=== PATIENT | male | born 1960 | race Caucasian/White ===

== ENCOUNTER 2022-01-18 16:33 | Emergency (ER) | payer OTHER, SELFPAY ==
[2022-01-18] VITALS (14 sets, daily range): BP systolic 152–194; BP diastolic 81–104; PULSE 101–125; RESP 16–30; TEMP 38.7–39.3; O2SAT 88–99
--- NOTE | 2022-01-18 16:35 | DI.RAD.S_ITS ---
PROCEDURE: XR CHEST 1V INDICATIONS: suspected sepsis TECHNIQUE: One view of the chest was acquired. COMPARISON: None. FINDINGS: Surgical changes and devices: None. Lungs and pleura: Lungs are clear. No pleural effusions or pneumothorax. Mediastinum: Mediastinal contours appear normal. Heart size is normal. Bones and chest wall: No suspicious bony lesions. Overlying soft tissues appear unremarkable. IMPRESSION: No acute cardiopulmonary disease process. Dictated by: Erika Snow MD, PhD on 01/18/2022 at 17:32 Approved by: Erika Snow MD, PhD on 01/18/2022 at 17:32
[2022-01-18] MEDS: SODIUM CHLORIDE 0.9% 1,000 ML 1000 ML IV (17:02)
[2022-01-18 17:07] LABS: Add Manual Diff / Slide Review NO; Basophils Absolute Auto 0 /uL (0-100); Basophils Percent Auto 0.4 % (0-2); Eosinophils Absolute Auto 0 /uL (0-450); Eosinophils Percent Auto 0.4 % (2-4); Hematocrit 39.4 % (41-53); Hemoglobin 13.8 g/dL (13.5-17.5); Lymphocytes Absolute Auto 1000 /uL (1100-4500); Lymphocytes Percent Auto 11.3 % (25-40); Mean Corpuscular HGB Conc 34.9 % (30-36); Mean Corpuscular Hemoglobin 31.2 PG (26-34); Mean Corpuscular Volume 89.3 fL (80-100); Monocytes Absolute Auto 700 /uL (0-900); Monocytes Percent Auto 8.5 % (3-14); Neutrophils Absolute Auto 6800 /uL (1500-7000); Neutrophils Percent Auto 79.4 % (50-75); Platelet Count 257 X10^3/uL (150-400); Red Blood Cell Count 4.42 X10^6/uL (4.5-5.9); White Blood Cell Count 8.5 X10^3/uL (4.5-11.0)
--- NOTE | 2022-01-18 17:07 | ED.SEPSIS ---
HPI - Sepsis General Chief Complaint: Fever Mode of arrival: Ambulatory Source: patient Evaluation Sepsis Screen: Possible Sepsis Risk Sepsis Infection Criteria Present: Suspected New Infection Narrative: Patient is a 61-year-old male with history of prostate cancer is currently on Lupron therapy has a last dose was about 2 weeks ago presenting today from the walk-in clinic concerned for sepsis and cellulitis of his forehead. Patient states that last night he scratched his forehead this morning he woke up he has had increasing redness swelling pain and fever. He is currently tachycardic with a fever of 102. He has no difficulty breathing no chest pain cough or shortness of breath. He says he has actually had this once before and cleared up with antibiotics. Patient also was positive for COVID last week he took antiviral medication he is feeling better from that. He is vaccinated COVID x3. Review of Systems Review of Systems Narrative: GENERAL: + fever, weakness HEENT: Denies sinus pain, ear pain, sore throat, difficulty swallowing, neck pain RESPIRATORY: Denies dyspnea, cough, wheezing, hemoptysis, sputum. CARDIOVASCULAR: Denies chest pain, palpitations, orthopnea, edema GASTROINTESTINAL: Denies nausea, vomiting, abdominal pain, diarrhea, constipation, melena. : Denies dysuria, frequency, incontinence, hematuria, urinary retention, flank pain. MUSCULOSKELETAL: Denies weakness, joint pain, or bony pain SKIN:+ rash NEUROLOGIC: Denies weakness, dizziness, headache, numbness, change in speech, confusion PSYCHIATRIC: No concerning psychosocial issues. 12 point review of systems is negative except for those stated above and HPI Patient History Medical History Prostate cancer Social History Smoking Status: Never smoker Smoking Status: Never smoker Exam Initial Vital Signs Initial Vital Signs: Vital Signs Temperature 102.7 F H 01/18/22 16:41 Pulse Rate 114 H 01/18/22 16:41 Respiratory Rate 22 01/18/22 16:41 Blood Pressure 163/100 H 01/18/22 16:41 Pulse Oximetry 99 01/18/22 16:41 GENERAL: Alert 61-year-old male appears in not feel well HEENT: Head atraumatic,EOMI, pupils reactive, face symmetric, moist mucous membranes CARDIOVASCULAR: Regular rate and rhythm without murmurs, rubs or gallops. RESPIRATORY: Breath sounds equal bilaterally, no wheezes rales or rhonchi. ABDOMEN: Soft, nontender. Normoactive bowel sounds all 4 quadrants. No guarding or rebound. EXTREMITIES: Normal range of motion, no clubbing or edema. Neurovascularly intact NEUROLOGICAL: Alert and oriented x4. SKIN: Forehead erythematous, no obvious sign of scratching or abrasion,fluctuation no induration minimal swelling and redness of cheeks and face. Course Orders Ordered: ED Orders 01/18/22 16:35 XR chest 1V Stat EKG-12 Lead Stat 01/18/22 16:40 Complete Blood Count AUTO DIFF Stat Comprehensive Metabolic Panel Stat Lactate (Lactic Acid) Stat Lipase Stat Procalcitonin Stat 01/18/22 17:15 Blood Culture Stat Discontinued Medications Sodium Chloride (Normal Saline 0.9%) 1,000 mls @ 1,000 mls/hr IV BOLUS ONE Stop: 01/18/22 17:34 Last Admin: 01/18/22 17:02 Dose: 1,000 mls/hr Documented by: CLAUDETTE Ceftriaxone Sodium 1,000 mg/ (Sodium Chloride) 100 mls @ 200 mls/hr IV NOW ONE Stop: 01/18/22 17:06 Last Infusion: 01/18/22 17:30 Dose: 0 mls/hr Documented by: Admin: 01/18/22 17:19 Dose: 200 mls/hr Documented by: CLAUDETTE Vancomycin HCl/Dextrose (Vancomycin) 1,500 mg in 300 mls @ 200 mls/hr IV NOW ONE Stop: 01/18/22 18:34 Last Admin: 01/18/22 17:30 Dose: 200 mls/hr Documented by: CLAUDETTE Ketorolac Tromethamine (Ketorolac 30 Mg/Ml Vial) 15 mg IV NOW ONE Stop: 01/18/22 17:06 Last Admin: 01/18/22 17:20 Dose: 15 mg Documented by: CLAUDETTE Vital Signs Vital signs: Vital Signs - 8 hr 01/18/22 16:41 Temperature 102.7 F H Pulse Rate 114 H Respiratory Rate 22 Blood Pressure 163/100 H Pulse Oximetry 99 Sepsis Guideline Criteria Level 1 - Infection Sepsis Infection Criteria Present: Suspected New Infection Treatment Initiated Antibiotics:: IV antimicrobials will be initiated as soon as possible after recognition of sepsis state and within one hour for both sepsis and septic shock. MDM - Sepsis Lab Data Result diagrams: 01/18/22 16:40 01/18/22 16:40 Labs: Lab Results 01/18/22 01/18/22 01/18/22 Range/Units 16:40 16:40 16:40 WBC 8.5 (4.5-11.0) X10^3/uL RBC 4.42 L (4.5-5.9) X10^6/uL Hgb 13.8 (13.5-17.5) g/dL Hct 39.4 L (41-53) % MCV 89.3 (80-100) fL MCH 31.2 (26-34) PG MCHC 34.9 (30-36) % RDW 13.0 (11.6-14.8) % Plt Count 257 (150-400) X10^3/uL Neut % (Auto) 79.4 H (50-75) % Lymph % (Auto) 11.3 L (25-40) % Custer % (Auto) 8.5 (3-14) % Eos % (Auto) 0.4 L (2-4) % Baso % (Auto) 0.4 (0-2) % Neut # (Auto) 6800 (4411-6550) /uL Lymph # (Auto) 1000 L (7232-0143) /uL Custer # (Auto) 700 (0-900) /uL Eos # (Auto) 0 (0-450) /uL Baso # (Auto) 0 (0-100) /uL Sodium 138 (137-145) mmol/L Potassium 3.8 (3.4-5.1) mmol/L Chloride 100 (98-107) mmol/L Carbon Dioxide 27 (22-32) mmol/L BUN 14 (9-20) mg/dL Creatinine 0.83 (0.66-1.25) mg/dL Estimated GFR > 60 (>60) mL/min BUN/Creatinine Ratio 16.9 (6-22) Glucose 117 H (80-110) mg/dL Lactate 1.2 (0.7-2.1) mmol/L Calcium 9.3 (8.4-10.2) mg/dL Total Bilirubin 1.3 (0.2-1.3) mg/dL AST 22 (17-59) IU/L ALT 17 (<50) IU/L Alkaline Phosphatase 134 H (38-126) U/L Total Protein 8.6 H (6.3-8.2) g/dL Albumin 4.5 (3.5-5.0) g/dL Globulin 4.1 (1.7-4.1) g/dL Albumin/Globulin Ratio 1.1 (1.0-2.8) Lipase 181 (23-300) U/L Procalcitonin 0.08 (<0.5) ng/mL Imaging Data Chest x-ray: Radiologist's Impression: Signed Patient: Miguel Novoa MR#: [id number] : 1960 Acct:[id number] Age/Sex: 61 / M Date of Service: 01/18/22 Loc: ED Accession Number: [id number] ?? Procedure: XR chest 1V Ordering Provider: Ade Moses D.O. PROCEDURE:? XR CHEST 1V ? INDICATIONS:? suspected sepsis ? TECHNIQUE:? One view of the chest was acquired.? ? COMPARISON:? None. ? FINDINGS:? ? Surgical changes and devices:? None.? ? Lungs and pleura:? Lungs are clear.? No pleural effusions or pneumothorax.? ? Mediastinum:? Mediastinal contours appear normal.? Heart size is normal.? ? Bones and chest wall:? No suspicious bony lesions.? Overlying soft tissues appear unremarkable.? ? IMPRESSION:? No acute cardiopulmonary disease process. ? ? Dictated by: Erika Snow MD, PhD on 01/18/2022 at 17:32 ? ECG Data Interpretation: Normal sinus rhythm rate 109 OR interval 138 QRS [address] changes no T-wave inversion MDM Narrative Medical decision making narrative: Patient initially does meet SIRS criteria tachycardic febrile with obvious cellulitis of his forehead. However blood work is overall reassuring. At this time he is given a dose of Rocephin and vancomycin in the ED. However I think reasonable to send him home on oral antibiotics and return if needed. Blood cultures are pending. Discharge Plan Departure Patient Disposition: Home Clinical Impression: Cellulitis Qualifiers: Site of cellulitis: face Qualified Code(s): L03.211 - Cellulitis of face Instructions: Cellulitis Activity Restrictions/Additional Instructions: *You have been diagnosed with cellulitis of for head *What to do: Monitor closely. You should start to feel better. *Continue to take medications as directed Doxycycline 100mg twice a day for 10 days *Follow up with your primary care provider in 2-3 days or call [phone] *Return to ER if you should have increase redness, swelling in face, difficulty breathing [or] any new, worsening or concerning symptoms Prescriptions: New doxycycline hyclate 100 mg capsule 100 mg PO BID Qty: 20 0RF Referrals: Miscellaneous,Doctor, [Primary Care Provider] -
[2022-01-18 17:18] LABS: Lactate (Lactic Acid) 1.2 mmol/L (0.7-2.1)
[2022-01-18 17:19] LABS: Alanine Aminotransferase 17 IU/L (<50); Albumin 4.5 g/dL (3.5-5.0); Albumin Globulin Ratio 1.1 (1.0-2.8); Alkaline Phosphatase 134 U/L (38-126); Aspartate Aminotransferase 22 IU/L (17-59); BUN Creatinine Ratio 16.9 (6-22); Bilirubin Total 1.3 mg/dL (0.2-1.3); Blood Urea Nitrogen 14 mg/dL (9-20); Calcium 9.3 mg/dL (8.4-10.2); Carbon Dioxide 27 mmol/L (22-32); Chloride 100 mmol/L (98-107); Estimated Glomerular Filt Rate > 60 mL/min (>60); Globulin 4.1 g/dL (1.7-4.1); Glucose 117 mg/dL (80-110); HEMOLYSIS < 15 (0-50); Lipase 181 U/L (23-300); Potassium 3.8 mmol/L (3.4-5.1); Sodium 138 mmol/L (137-145); Total Protein 8.6 g/dL (6.3-8.2)
[2022-01-18] MEDS: cefTRIAXone 1,000 MG in SODIUM CHLORIDE 0.9% 100 ML 200 MG IV (17:19)
[2022-01-18] MEDS: KETOROLAC 30 MG/ML VIAL 15 MG IV (17:20)
[2022-01-18] MEDS: VANCOMYCIN 1,500 MG/300 ML PIGGYBACK 200 MG IV (17:30)
[2022-01-18 17:35] LABS: Procalcitonin 0.08 ng/mL (<0.5)
[2022-01-18] MEDS: ACETAMINOPHEN 325 MG TABLET 975 MG PO (19:41)
== END 2022-01-18 20:22 | disposition home or self-care (01) ==
PROVIDERS: Emergency Provider Emergency Medicine
DX: L03.211 Cellulitis of face (principal); R00.0 Tachycardia, unspecified
CPT/HCPCS: 36415; 71045; 80053; 83605; 83690; 84145; 85025; 87040; 93005; 93010; 96365; 96366; 96375; 99284; J0696; J1885

== ENCOUNTER → 2022-03-11 12:46 | Outpatient (CLI) | payer OTHER, SELFPAY ==
--- NOTE | 2022-03-11 12:51 | DI.MRI.S_ITS ---
PROCEDURE: MR SHOULDER LT WO CON INDICATIONS: Pain in left shoulder TECHNIQUE: Noncontrast oblique coronal T2 fast spin echo with fat saturation, oblique sagittal T1 spin echo and T2 fast spin echo with fat saturation, axial T1 spin echo and T2 fast spin echo with fat saturation through the shoulder. COMPARISON: None. FINDINGS: Image quality: Excellent. Rotator cuff: Mild supraspinatus and infraspinatus tendinosis is seen. Teres minor tendon is intact. Moderate subscapularis tendinosis with focal low-grade intrasubstance tearing distally. Edema is seen within the medial aspect of the subscapularis muscle and also the supraspinatus muscle, consistent with low-grade muscle strains. No significant rotator cuff muscle atrophy. Bones and bursae: Traction cystic changes and edema are seen in the posterosuperior humeral head. Mild to moderate degenerative changes are seen in the acromioclavicular joint. Small amount of subacromial/subdeltoid bursal fluid. A small glenohumeral effusion is present. Capsule and soft tissues: There is nondisplaced tearing of the superior labrum extending to the posterior and inferior labrum. The proximal biceps long head tendon is intact. There is partial effacement of the fat in the rotator interval. The glenohumeral ligaments are grossly intact. IMPRESSION: 1. Low grade intrasubstance tearing of the subscapularis tendon at its superior insertion superimposed on moderate tendinosis. Mild supraspinatus and infraspinatus tendinosis. 2. Low-grade strains of the supraspinatus and subscapularis muscles. 3. Nondisplaced tearing of the superior, posterior, and inferior labrum. 4. Mild to moderate acromioclavicular osteoarthrosis. 5. Small subacromial/subdeltoid bursal effusion or bursitis. Dictated by: Augustine Wilson M.D. on 03/11/2022 at 14:43 Approved by: Augustine Wilson M.D. on 03/11/2022 at 14:51
== END ==
DX: M75.112 Incomplete rotator cuff tear or rupture of left shoulder, not specified as traumatic (principal); S43.492A Other sprain of left shoulder joint, initial encounter; M19.012 Primary osteoarthritis, left shoulder; M25.512 Pain in left shoulder; G89.29 Other chronic pain
CPT/HCPCS: 73221

== ENCOUNTER → 2022-10-31 14:34 | Outpatient (CLI) | payer OTHER, SELFPAY | PROVIDERS: Visit Provider Student in an Organized Health Care Education/Training Program | DX: R21 Rash and other nonspecific skin eruption (principal) | CPT/HCPCS: 87070; 87075; 87205 ==

== ENCOUNTER → 2022-12-07 10:31 | Outpatient (CLI) | payer OTHER, SELFPAY ==
--- NOTE | 2022-12-07 10:46 | DI.DEXA.S_ITS ---
Bone Density Report Name: SUNDEEP PIPER Age: 62 Sex: Male Ethnicity: White Date of : 1960 Indication: Referring Provider: PAVAN BROWN Study: Bone densitometry was performed. Exam Date: December 07, 2022 Accession number: [id number] Bone Density: Region BMD T-score Z-score Classification AP Spine(L1-L4) 0.773 -2.5 -2.2 Osteoporosis Femoral Neck (Left) 0.578 -2.4 -1.6 Osteopenia Total Hip (Left) 0.781 -1.3 -1.2 Osteopenia Femoral Neck (Right) 0.615 -2.1 -1.4 Osteopenia Total Hip (Right) 0.768 -1.4 -1.3 Osteopenia Total Hip Mean 0.775 -1.4 -1.3 Osteopenia World Health Organization criteria for BMD impression classify patients as: Normal (T-score at or above -1.0), Osteopenia (T-score between -1.0 and -2.5), or Osteoporosis (T-score at or below -2.5). 10-year Fracture Risk: FRAX not reported because: Some T-score for Spine Total or Hip Total or Femoral Neck at or below -2.5 Impression: The patient has osteoporosis, based on the Total Spine T-score. Discussion: HIGH RISK OF FRACTURE. BONE DENSITY IS UNDESIRABLY LOW AT ONE OR MORE SKELETAL SITES, CONSISTENT WITH OSTEOPOROSIS. ALSO, BONE DENSITY IS LOWER THAN EXPECTED FOR AGE, SEX AND RACE AT ONE OR MORE SKELETAL SITES; RECOMMEND A DILIGENT SEARCH FOR SECONDARY CAUSES OF BONE LOSS. This patient's lowest T-score meets the World Health Organization's (WHO) criteria for osteoporosis at one or more sites (T-score -2.5 or below). In untreated patients, the risk of osteoporotic fracture increases approximately two-fold for each 1.0 SD decrease in T-score. Low bone density is not the only risk factor for fracture; also consider factors such as patient's age, frailty or poor health, risk of falling, risk of injury, previous osteoporotic fracture, family history of osteoporosis, cigarette smoking, low body weight, etc. Not everyone with low bone mineral density has osteoporosis; osteomalacia and other metabolic bone disorders should also be considered. Patients who have osteoporosis should be evaluated for specific diseases and conditions (secondary causes) that may cause or contribute to bone loss. The National Osteoporosis Foundation (NOF) recommends pharmacologic intervention for men with BMD at this level (a T-score of -2.5 or below). Also, this patient's bone mineral density is below the range considered normal for healthy age-, sex and race-matched controls at least one site (Z-score -2.0 or below). This warrants careful evaluation for diseases and conditions that may contribute to accelerated bone loss. The patient should follow a healthful lifestyle (good nutrition with adequate calcium and vitamin D, and appropriate weight-bearing exercise). Follow-Up: Consider repeating this study in 2 years to reassess this patient's status, or sooner if there is some new clinical indication. Reported by: NICCI BORJAS M.D. on 12/07/2022 11:03:00 AM.
== END ==
PROVIDERS: PCP Family Medicine; Referring Provider Student in an Organized Health Care Education/Training Program; Visit Provider Student in an Organized Health Care Education/Training Program
DX: C79.82 Secondary malignant neoplasm of genital organs (principal); M81.0 Age-related osteoporosis without current pathological fracture; C80.1 Malignant (primary) neoplasm, unspecified; Z79.818 Long term (current) use of other agents affecting estrogen receptors and estrogen levels
CPT/HCPCS: 77080

== ENCOUNTER → 2022-12-28 13:10 | Outpatient (CLI) | payer OTHER, SELFPAY ==
--- NOTE | 2022-12-28 13:12 | DI.RAD.S_ITS ---
PROCEDURE: XR KNEE LT 3V INDICATIONS: Left medial knee pain/swelling x3 mo TECHNIQUE: 3 views of the knee were acquired. COMPARISON: None. FINDINGS: Bones: No fractures or dislocations. No suspicious bony lesions. Mild tricompartmental osteoarthritic degenerative changes. Soft tissues: Large suprapatellar joint effusion. No suspicious soft tissue calcifications. IMPRESSION: Large nonspecific joint effusion. No acute osseous lesion. If symptoms and/or clinical suspicion for pathology persists, further assessment with advanced imaging (e.g. CT, MRI or bone scan) should be considered. Dictated by: Erika Snow MD, PhD on 12/28/2022 at 13:29 Approved by: Erika Snow MD, PhD on 12/28/2022 at 13:29
== END ==
PROVIDERS: PCP Family Medicine; Referring Provider Family Medicine; Visit Provider Family Medicine
DX: M25.462 Effusion, left knee (principal); M25.562 Pain in left knee
CPT/HCPCS: 73562

== ENCOUNTER → 2023-05-13 09:51 | Outpatient (CLI) | payer OTHER, SELFPAY ==
--- NOTE | 2023-05-13 09:52 | DI.RAD.S_ITS ---
PROCEDURE: XR KNEE LT 4V INDICATIONS: chronic pain TECHNIQUE: For views of the knee were acquired. COMPARISON: [facility], CR, XR KNEE LT 3V, 12/28/2022, 13:13. FINDINGS: Bones: No fractures or dislocations. No suspicious bony lesions. Mild marginal spurs in the patellofemoral articulation. Minor medial compartment joint space loss. Soft tissues: Moderate-sized suprapatellar joint effusion, similar compared to the prior joint effusion. No suspicious soft tissue calcifications. IMPRESSION: 1. Stable appearing moderate-sized joint effusion. 2. Minor to mild degenerative changes, stable compared to prior. Dictated by: Viviana Yee M.D. on 05/13/2023 at 12:43 Approved by: Viviana Yee M.D. on 05/13/2023 at 12:45
--- NOTE | 2023-05-13 09:52 | DI.RAD.S_ITS ---
PROCEDURE: XR KNEE RT 4V INDICATIONS: chronic pain TECHNIQUE: Four views of the knee were acquired. COMPARISON: [facility], CR, XR KNEE LT 3V, 12/28/2022, 13:13. FINDINGS: Bones: No fractures or dislocations. No suspicious bony lesions. Mild medial compartment joint space loss. Mild patellofemoral compartment spurs, similar compared to the contralateral side. Soft tissues: No joint effusion. No suspicious soft tissue calcifications. IMPRESSION: 1. Mild tricompartment degenerative change. 2. No significant joint effusion as seen on the contralateral side. Dictated by: Viviana Yee M.D. on 05/13/2023 at 12:45 Approved by: Viviana Yee M.D. on 05/13/2023 at 12:46
== END ==
PROVIDERS: PCP Family Medicine; Referring Provider Family Medicine; Visit Provider Family Medicine
DX: M25.561 Pain in right knee (principal); M25.562 Pain in left knee; M25.462 Effusion, left knee
CPT/HCPCS: 73564

== ENCOUNTER → 2023-05-16 11:11 | Outpatient (CLI) | payer OTHER, SELFPAY ==
[2023-05-16 12:04] LABS: Hemoglobin A1C% w Est Avg Glu 5.4 % (4.0-6.0)
[2023-05-16 12:16] LABS: Alanine Aminotransferase 18 IU/L (<50); Albumin 4.2 g/dL (3.5-5.0); Albumin Globulin Ratio 1.3 (1.0-2.8); Alkaline Phosphatase 111 U/L (38-126); Aspartate Aminotransferase 22 IU/L (17-59); BUN Creatinine Ratio 18.5 (6-22); Blood Urea Nitrogen 15 mg/dL (9-20); Calcium 9.2 mg/dL (8.4-10.2); Carbon Dioxide 30 mmol/L (22-32); Chloride 101 mmol/L (98-107); Cholesterol 191 mg/dL (140-199); Estimated Glomerular Filt Rate > 60 mL/min (>60); Globulin 3.2 g/dL (1.7-4.1); Glucose 100 mg/dL (80-110); HDL Cholesterol 33 mg/dL (40-60); HEMOLYSIS < 15 (0-50); LDL Cholesterol Calculated 134 mg/dL (<100); Potassium 4.1 mmol/L (3.4-5.1); Sodium 138 mmol/L (137-145); Total Protein 7.4 g/dL (6.3-8.2); Triglycerides 120 mg/dL (35-150)
[2023-05-16 17:25] LABS: HIV 1 & 2 Ab/Ag 4th Gen Combo NEGATIVE (NEGATIVE); Hep C Virus Ab w/Reflex Quant NEGATIVE s/c (NEGATIVE)
== END ==
LOC: LAB 11:27 → RESP 11:29
PROVIDERS: PCP Family Medicine; Referring Provider Family Medicine; Visit Provider Family Medicine
DX: Z00.00 Encounter for general adult medical examination without abnormal findings (principal); R73.09 Other abnormal glucose; R00.2 Palpitations; C61 Malignant neoplasm of prostate
CPT/HCPCS: 36415; 80053; 80061; 83036; 86803; 87389; 93005; 93010

== ENCOUNTER → 2024-12-13 18:24 | Outpatient (CLI) | payer OTHER, SELFPAY ==
--- NOTE | 2024-12-13 19:51 | DI.MRI.S_ITS ---
PROCEDURE: MR KNEE LT WO CON INDICATIONS: knee pain, effusion TECHNIQUE: Noncontrast sagittal PD fast spin echo and T2 fast spin echo with fat saturation, sagittal 3-D FLASH with fat saturation; coronal T1 spin echo and PD fast spin echo with fat saturation, and axial PD fast spin echo with fat saturation through the knee. COMPARISON: None. FINDINGS: Image quality: Excellent. Menisci: Absence/degeneration of the mid body extending into the anterior horn of the medial meniscus with truncation of the apices of the anterior and posterior horns. Lateral meniscus is intact without abnormal signal to suggest tear. There is increased T2 weighted signal posteriorly suggests meniscocapsular separation posteriorly. Large left knee joint effusion. Cruciate ligaments: The anterior and posterior cruciate ligaments appear intact. Medial structures: Increased T2 weighted signal surrounding the medial collateral ligament suggests grade 1 injury likely chronic. The semimembranosus tendon insertion is intact. Visualized portions of the pes anserinus tendons appear normal. Lateral structures: The lateral collateral ligament, long and short heads of the biceps femoris tendon appear intact. The popliteus tendon appears normal. Iliotibial band appears normal. Anterior structures: The quadriceps and patellar tendons appear intact. Patellar alignment is normal. No femoral trochlear dysplasia or ventral trochlear prominence. Bones and cartilage: 3 mm focal cartilage defect in the lateral tibial plateau (coronal series 14, image 22). Moderate diffuse cartilaginous thinning in the medial compartment. Mild degenerative irregularity in the medial patellar facet cartilage with mild thinning. No bone marrow contusions or fractures. Joint space: There is large knee joint effusion. No popliteal cyst. IMPRESSION: Large effusion. Degeneration of the medial meniscus as discussed above. Dictated by: Ottoniel Sterling M.D. on 12/14/2024 at 8:30 Approved by: Ottoniel Sterling M.D. on 12/14/2024 at 9:15
== END ==
PROVIDERS: PCP Family Medicine; Referring Provider Family Medicine; Visit Provider Family Medicine
DX: M23.312 Other meniscus derangements, anterior horn of medial meniscus, left knee (principal); M25.562 Pain in left knee; M25.462 Effusion, left knee
CPT/HCPCS: 73721

== ENCOUNTER → 2025-01-04 16:07 | Outpatient (CLI) | payer OTHER, SELFPAY ==
[2025-01-04 18:03] LABS: Alanine Aminotransferase 16 IU/L (<50); Albumin 4.3 g/dL (3.5-5.0); Albumin Globulin Ratio 1.8 (1.0-2.8); Alkaline Phosphatase 113 U/L (38-126); Aspartate Aminotransferase 22 IU/L (17-59); BUN Creatinine Ratio 24.2 (6-22); Bilirubin Total 0.6 mg/dL (0.2-1.3); Blood Urea Nitrogen 24 mg/dL (9-20); Calcium 8.7 mg/dL (8.4-10.2); Carbon Dioxide 24 mmol/L (22-32); Chloride 107 mmol/L (98-107); Cholesterol 182 mg/dL (140-199); Estimated Glomerular Filt Rate > 60 mL/min (>60); Globulin 2.4 g/dL (1.7-4.1); Glucose 96 mg/dL (70-99); HDL Cholesterol 41 mg/dL (40-60); HEMOLYSIS < 15 (0-50); LDL Cholesterol Calculated 96 mg/dL (<100); Potassium 4.7 mmol/L (3.4-5.1); Sodium 140 mmol/L (137-145); Total Protein 6.7 g/dL (6.3-8.2); Triglycerides 226 mg/dL (35-150)
[2025-01-04 18:34] LABS: Prostate Specific Antigen Scrn < 0.064 ng/mL (0.1-4.0)
[2025-01-04 20:07] LABS: Urine N gonorrhoeae NOT DETECTED
[2025-01-04 20:11] LABS: Urine Chlamydia NOT DETECTED
[2025-01-05 04:10] LABS: HSV 1 IGG AB Non Reactive (Non Reactive); HSV 2 IGG AB Non Reactive (Non Reactive)
[2025-01-05 06:40] LABS: RPR Screen Non Reactive (Non Reactive)
[2025-01-05 15:19] LABS: Hepatitis B Surface Antigen NEGATIVE s/c (NEGATIVE)
[2025-01-05 15:38] LABS: HIV 1 & 2 Ab/Ag 4th Gen Combo NEGATIVE (NEGATIVE); Hep C Virus Ab w/Reflex Quant NEGATIVE s/c (NEGATIVE)
== END ==
PROVIDERS: PCP Family Medicine; Visit Provider Family Medicine
DX: E78.5 Hyperlipidemia, unspecified (principal); Z12.5 Encounter for screening for malignant neoplasm of prostate; Z00.00 Encounter for general adult medical examination without abnormal findings; Z11.3 Encounter for screening for infections with a predominantly sexual mode of transmission; N52.9 Male erectile dysfunction, unspecified; Z72.51 High risk heterosexual behavior
CPT/HCPCS: 36415; 80053; 80061; 86592; 86695; 86696; 86803; 87340; 87389; 87491; 87591; G0103

== ENCOUNTER → 2025-03-20 17:05 | Outpatient (CLI) | payer OTHER, SELFPAY ==
--- NOTE | 2025-03-20 17:05 | DI.MRI.S_ITS ---
PROCEDURE: MR SHOULDER RT WO CON INDICATIONS: persistent pain. ? rotator cuff TECHNIQUE: Noncontrast oblique coronal T2 fast spin echo with fat saturation, oblique sagittal T1 spin echo and T2 fast spin echo with fat saturation, axial T1 spin echo and T2 fast spin echo with fat saturation through the shoulder. COMPARISON: [facility], MR, MR SHOULDER LT WO CON, 03/11/2022, 13:04. FINDINGS: Image quality: Excellent. Rotator cuff: Low-grade articular surface partial-thickness tear involving distal supraspinatus at its insertion on the humeral head is seen extending to musculotendinous junction. Distal infraspinatus is intact. Subscapularis tendon is intact. Sagittal images demonstrate mild supraspinatus muscle atrophy. Bones and bursae: No bone marrow contusions or fractures. Moderate to severe glenohumeral joint osteoarthritis and moderate acromioclavicular joint osteoarthritis is seen. Type 2 acromion without an os acromiale. Small to moderate amount of joint effusion and trace amount of subacromial subdeltoid bursal fluid is seen. No loose bodies. Capsule and soft tissues: Fraying of superior anterior glenoid labrum with T2 hyperintense signal suggestive of superior anterior glenoid labral tear. Extensive signal abnormality and fraying throughout posterior and inferior glenoid labrum is also seen. The long head of the biceps tendon demonstrates normal location and morphology. The rotator interval appears normal, without fibrosis. The coracohumeral ligament is normal in thickness. IMPRESSION: 1. Low-grade articular surface partial-thickness tear involving distal supraspinatus extending to musculotendinous junction. No full-thickness rotator cuff tendon rupture. Mild supraspinatus muscle atrophy. 2. Moderate to severe glenohumeral joint osteoarthritis and moderate acromioclavicular joint osteoarthritis. No acute fracture or dislocation. Moderate joint effusion and small amount of subacromial subdeltoid bursal fluid, no gross loose bodies. 3. Suggestion of superior anterior glenoid labral tear and extensive posterior glenoid labral tear. Dictated by: Octaviano Welch M.D. on 03/21/2025 at 11:53 Approved by: Octaviano Welch M.D. on 03/21/2025 at 12:03
== END ==
PROVIDERS: PCP Family Medicine; Referring Provider Family Medicine; Visit Provider Family Medicine
DX: M75.111 Incomplete rotator cuff tear or rupture of right shoulder, not specified as traumatic (principal); M19.011 Primary osteoarthritis, right shoulder; M25.511 Pain in right shoulder; M25.411 Effusion, right shoulder
CPT/HCPCS: 73221

== ENCOUNTER → 2025-05-24 10:34 | Outpatient (CLI) | payer OTHER, SELFPAY | LOC: LAB 10:35 | PROVIDERS: PCP Family Medicine; Visit Provider Family Medicine | DX: R31.9 Hematuria, unspecified (principal) | CPT/HCPCS: 87086 ==

== ENCOUNTER 2025-08-07 11:04 | Day surgery (SDC) | payer OTHER, SELFPAY ==
[2025-07-29 10:26] VITALS: BMI 27.1
--- NOTE | 2025-08-07 | PATH_ITS ---
[facility] Accession Number: [id number] No. of containers..01 Tissue . 01 Material submitted: . body - COLON 30CM . 01 Clinical history: . A: 30 CM 12-12 PER TERI, OR SR. DIRECTOR, SITE IS COLON 30CM /RR . 01 Diagnosis: COLON 30CM: Tubular adenoma. STO 08/19/2025 1254 Local . 01 Electronically signed: . Abdon Wahl MD, Pathologist NPI- [id number] . 01 Gross description: . Received in formalin with two patient identifiers, and 30 cm are two 0.2-0.3 cm caldera tissue fragments, entirely submitted in A1. ([id number]) /MRV 08/19/2025 1254 Local . 01 Pathologist provided ICD-10: D12.6 . 01 CPT . 624753 Specimen Comment: A courtesy copy of this report has been sent to [phone] Performed at: [address] [facility] [address], [place], [place] [id number] MD Abdon Wahl MD Phone: [phone]
[2025-08-07] MEDS: LACTATED RINGERS 1,000 ML 42 ML IV (11:40)
[2025-08-07 11:47] VITALS: BP 139/87; PULSE 84; RESP 18; TEMP 36.4; O2SAT 99
--- NOTE | 2025-08-07 12:05 | PM.HP.IH.1 ---
History of Present Illness History of Present Illness Date Patient Seen: 08/07/25 Chief complaint: [facility] Medical History (Updated 08/07/25 @ 12:06 by Yon Stevenson MD) History of COVID-19 Multiple sclerosis Depression Raynaud disease Hyperlipidemia, unspecified Bilateral primary osteoarthritis of knee Pain in both knees Insomnia Encounter for initial annual wellness visit (AWV) in Medicare patient Tinnitus Headache (~2021) Low testosterone (~2020) Prostate cancer (~2006) Surgical History Anesthesia History of inguinal hernia repair (~2004) Status post proctocolectomy Family History Father History of heart disease Mother Alzheimer's disease Mental health problem Brother Cancer Social History Smoking Status: Never smoker Meds Home Medications and Allergies Home Medications ?Medication ?Instructions ?Recorded ?Confirmed ?Type finasteride 5 mg tablet 5 mg PO DAILY #90 tabs 05/15/25 08/07/25 Rx quetiapine 50 mg tablet (Seroquel) 50 mg PO DAILY sleep #90 tabs 05/15/25 08/07/25 Rx Allergies Allergy/AdvReac Type Severity Reaction Status Date / Time Penicillins Allergy Verified 08/07/25 11:36 Exam Vital Signs (past 8 hours): - 08/07/25 11:47 Temperature 97.6 F Pulse Rate 84 Respiratory Rate 18 Blood Pressure 139/87 Pulse Oximetry 99 Oxygen Delivery Method Room Air Oxygen Delivery Method Room Air Narrative Exam Narrative: Oropharynx free of lesions Chest clear to auscultation percussion Cardiac exam reveals no S3 or murmur Assessment & Plan Assessment and plan (1) History of colon polyps: Status: Acute (2) Colon cancer screening: Status: Acute Assessment & Plan narrative: History of colon polyps need for follow-up colonoscopy. Risks, benefits and complications truly noted. Time-Based Coding :: [TOTAL MINUTES] spent with patient and on the chart (including review of chart, obtaining history, exam, reviewing outside data, placing orders, documenting exam and treatment plan, and counseling patient) on [DATE]. PROFEE Print Machine Operator Document charge(s): No
--- NOTE | 2025-08-07 12:07 | PM.OP.COLON ---
Operative Date/Time/Diagnoses Date of procedure: 08/07/25 Time of procedure: 00:00 Pre-op diagnosis: History Post-op diagnosis: same Procedure & Clinicians Study performed: Colonoscopy Same procedure(s) as scheduled: Yes Indications: History of colon polyps need for follow-up colonoscopy Surgeon: Yon Stevenson Anesthesia Type: MAC +/- Procedure Notes Procedure in detail: After informed consent the patient was placed in left lateral decubitus position. The video colonoscope was introduced the rectum and easily passed the cecum. On slow withdrawal mucosa was carefully examined. The scope was removed. The patient tolerated the procedure well. Blood loss none Complications none Sedation mac Findings 1. 6 mm sessile polyp at 30 cm cold snared removed completely 2. Otherwise negative colonoscopy to cecum Will be in touch regarding pathology but most likely patient will need follow-up colonoscopy in 5 years. Estimated Blood Loss: 0 Complications: none
[2025-08-07 12:32] VITALS: BP 108/73; PULSE 83; RESP 16; TEMP 36.3; O2SAT 96
[2025-08-07 12:38] VITALS: BP 104/78; PULSE 81; RESP 24; O2SAT 95
[2025-08-07 12:46] VITALS: BP 109/73; PULSE 79; RESP 20; TEMP 36.6; O2SAT 95
== END 2025-08-07 13:00 | disposition home or self-care (01) ==
PROVIDERS: PCP Family Medicine; Referring Provider Internal Medicine Gastroenterology; Visit Provider Internal Medicine Gastroenterology
PROC: 0DJD8ZZ Inspection of Lower Intestinal Tract, Via Natural or Artificial Opening Endoscopic (ICD-10-PCS; CPT 45378; principal; 2025-08-07 12:45)
DX: Z12.11 Encounter for screening for malignant neoplasm of colon (principal); Z86.0100 Personal history of colon polyps, unspecified; D12.6 Benign neoplasm of colon, unspecified
CPT/HCPCS: 45385; J2704; J7120